=== PATIENT | male | born 1990 | race Caucasian/White ===

== ENCOUNTER 2018-02-20 03:51 | Emergency (ER) | payer OTHER ==
[~2018-02-20] VITALS: Ht 182.9 cm; Wt 72.6 kg
[2018-02-20 06:49] VITALS: BP 128/71
== END 2018-02-20 06:49 | disposition home or self-care (01) ==
LOC: ED 03:51
DX: S61.512A Laceration without foreign body of left wrist, initial encounter (principal); S00.83XA Contusion of other part of head, initial encounter; S60.212A Contusion of left wrist, initial encounter; Z90.09 Acquired absence of other part of head and neck; Y08.89XA Assault by other specified means, initial encounter; Y93.89 Activity, other specified; Y92.89 Other specified places as the place of occurrence of the external cause; Y99.8 Other external cause status
CPT/HCPCS: J1885; J2001